=== PATIENT | male | born 1985 | race Caucasian/White ===

== ENCOUNTER 2024-04-29 08:00 | Outpatient (CLI) | payer OTHER ==
--- NOTE | 2024-04-29 15:59 | XRAY Report ---
PROCEDURE: Lumbar Spine 2-3V INDICATIONS: LUMBAR BACK PAIN TECHNIQUE: 3 views of the lumbar spine were acquired. COMPARISON: None. FINDINGS: Surgical change: None. Bones: 5 [id number] vertebrae are present. 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 Mild dextroconvex curvature of the lumbar spine. No vertebral body compressi on fractures. No suspicious bony lesions. Mild to moderate disc space narrowing and degenerative end plate changes and multilevel facet hypertrophy. Soft tissues: Overlying bowel gas pattern is normal. No suspicious soft tissue calcifications. IMPRESSION: 1.Mild to moderate multilevel spondylosis. 2.Mild dextroconvex curvature. 7 mm isthmic spondylolisthesis at L5-S1. Reviewed by: Eddie Bowie MD on 04/29/2024 3:58 PM PDT Approved by: Eddie Bowie MD on 04/29/2024 3:58 PM PDT Station ID: [id number]
== END 2024-04-29 23:59 | disposition home or self-care (01) ==
LOC: DI.S 08:00
PROVIDERS: ATTEND Registered Nurse
DX: M47.816 Spondylosis without myelopathy or radiculopathy, lumbar region (principal); M43.17 Spondylolisthesis, lumbosacral region